=== PATIENT | male | born 2000 | race Hispanic/Latino ===

== ENCOUNTER 2024-06-05 05:20 | Emergency (ER) | payer OTHER ==
[~2024-06-05] VITALS: Ht 180.3 cm; Wt 73.0 kg
[2024-06-05] MEDS ORDERED: LIDOCAINE W/ EPINEPHRINE 10 MG/ML INJ STI ONE (05:55)
[2024-06-05] MEDS ORDERED: Diph, Acellular Pertussis, Tet 0.5 ML/VIAL (Tdap) SDV IM ONE (05:55)
[2024-06-05] MEDS ORDERED: POVIDONE IODINE 0.5 OZ/BTL TOP ONE (05:55)
[2024-06-05] MEDS ORDERED: BACTRIM DS1 TAB PO (06:26)
[2024-06-05] MEDS ORDERED: SULFAMETHOXAZOLE W/TRIMETHOPRI 1 COMBO TAB PO ONE (06:30)
[2024-06-05 06:49] VITALS: BP 162/108
== END 2024-06-05 06:49 | disposition home or self-care (01) | DRG 605 ==
LOC: ED 05:20
PROC: 0HCGXZZ Extirpation of Matter from Left Hand Skin, External Approach (ICD-10-PCS; principal; 2024-06-05)
DX: S60.552A Superficial foreign body of left hand, initial encounter (principal); L03.114 Cellulitis of left upper limb; W45.8XXA Other foreign body or object entering through skin, initial encounter; Y99.0 Civilian activity done for income or pay
CPT/HCPCS: 90715